=== PATIENT | female | born 1965 ===

== ENCOUNTER 2019-03-11 18:55 | Emergency (ER) | payer OTHER ==
[2019-03-11 19:19] VITALS: TEMP 98.2; O2SAT 100
[2019-03-11 19:25] VITALS: BMI 26.8
--- NOTE | 2019-03-11 19:44 | ED PDOC ---
Arrival/HPI - General Time Seen by Provider: 03/11/19 19:09 Historian: Patient - History of Present Illness Narrative History of Present Illness (Text): 03/11/19 19:09 Pao White is a 53 year old female who presents to the emergency department for throat pain since 2 months. Patient visited PMD for similar complaints and was given augmentin in February with no improvement, had CT from 03/01/19, which showed "Asymmetry of the valleculae with subtle questionable mucosal enhancement of the left vallecula. Recommend further evaluation with direct visual inspection. Slight asymmetry of the piriform sinuses, likely due to swallowing. No other significant abnormality." Patient had direct nasal laryngoscopy last week with ENT in [place] which showed "infection" and patient was started on clarithromycin. Patient reports that her throat pain has still not improved and is worsened when she is talking. Reports that it is not related to swallowing and she has no issues eating or swallowing food. She reports that today she had R sided chest pain with no exacerbating or remitting factors. Time/Duration: > month (2 months) Symptom Course: Unchanged Activities at Onset: Light Context: Home Past Medical History - Provider Review Nursing Documentation Reviewed: Yes - Infectious Disease Hx of Infectious Diseases: None - Tetanus Immunization Tetanus Immunization: Up to Date - Past Medical History Past Medical History: No Previous - Psychiatric Hx Depression: No Hx Emotional Abuse: No Hx Physical Abuse: No Hx Substance Use: No - Past Surgical History Past Surgical History: No Previous - Surgical History Hx Section: Yes - Anesthesia Hx Anesthesia: Yes Hx Anesthesia Reactions: No Hx Malignant Hyperthermia: No - Suicidal Assessment Feels Threatened In Home Enviroment: No Family/Social History - Physician Review Nursing Documentation Reviewed: Yes Family/Social History: Unknown Family HX Smoking Status: Never Smoked Hx Alcohol Use: No Hx Substance Use: No Hx Substance Use Treatment: No Allergies/Home Meds Allergies/Adverse Reactions: Allergies No Known Allergies Allergy (Verified 10/24/16 18:21) Home Medications: Home Meds Medication Instructions Recorded Confirmed Amoxicillin/Clavulanate [Augmentin 1 tab PO BID 03/11/19 03/11/19 875 MG-125 MG Tab] Clarithromycin [Biaxin Filmtab] 500 mg PO Q12H 03/11/19 03/11/19 Ibuprofen [Motrin Tab] 800 mg PO BID 03/11/19 03/11/19 Review of Systems - Review of Systems Constitutional: absent: Fevers, Other (dizziness, lightheadedness) Eyes: absent: Vision Changes ENT: Other (throat pain, worsened when talking x 2 months). absent: Rhinorrhea Respiratory: absent: SOB, Cough Cardiovascular: Chest Pain. absent: Palpitations, Edema, Calf Pain Gastrointestinal: absent: Abdominal Pain, Constipation, Diarrhea, Nausea, Vomiting Skin: absent: Rash Neurological: absent: Dizziness Hemo/Lymphatic: absent: Adenopathy, Easy Bleeding Psychiatric: absent: Anxiety Physical Exam Vital Signs Reviewed: Yes Vital Signs Temp Pulse Resp BP Pulse Ox 03/11/19 19:06 98.2 F 83 18 160/71 H 100 Temperature: Afebrile Blood Pressure: Normal Pulse: Regular Respiratory Rate: Normal Appearance: Positive for: Well-Appearing, Non-Toxic, Comfortable Pain Distress: None Mental Status: Positive for: Alert and Oriented X 3 - Systems Exam Head: Present: Atraumatic, Normocephalic Pupils: Present: PERRL Extroacular Muscles: Present: EOMI Conjunctiva: Present: Normal Mouth: Present: Moist Mucous Membranes Pharnyx: Present: Normal. No: ERYTHEMA, EXUDATE Neck: Present: Normal Range of Motion Respiratory/Chest: Present: Clear to Auscultation, Good Air Exchange. No: Respiratory Distress, Accessory Muscle Use, Wheezes, Rales, Rhonchi Cardiovascular: Present: Regular Rate and Rhythm, Normal S1, S2. No: Murmurs, Rub, Gallop Abdomen: Present: Normal Bowel Sounds. No: Tenderness, Distention, Peritoneal Signs, Rebound, Guarding Back: Present: Normal Inspection Upper Extremity: Present: Normal Inspection. No: Cyanosis, Edema Lower Extremity: Present: Normal Inspection. No: Edema Neurological: Present: GCS=15, CN II-XII Intact, Speech Normal Skin: Present: Warm, Dry, Normal Color. No: Rashes Psychiatric: Present: Alert, Oriented x 3, Normal Insight, Normal Concentration Medical Decision Making ED Course and Treatment: 03/11/19 19:09 Impression: Pao White is a 53 year old female who presents to the emergency department for throat pain since 2 months on clarithromycin, now with 1 day history of R sided chest pain. Plan: -- Labs -- Chest X-Ray -- Toradol -- Reassess and disposition Prior Visits: Notes and results from previous visits were reviewed. Progress Notes: 03/11/19 20:21 EKG shows NSR at 84bpm with normal intervals and no ST changes. Cxray negative as read by me. Trop x 1 negative. Thyroid studies WNL. Heart score:1. Could be side effect of new medication vs unrelated atypical chest pain. Patient phonating normally and tolerating po. Patient instructed on the importance of following up with ENT for further evaluation of chronic throat pain that may be related to vocal cords due to relation to speaking and cardiology due to new R sided chest pain. - RAD Interpretation Radiology Orders: 03/11/19 19:25 CHEST PORTABLE [RAD] Stat - Medication Orders Current Medication Orders: Discontinued Medications Ketorolac Tromethamine (Toradol) 30 mg IVP STAT STA Stop: 03/11/19 19:26 - Scribe Statement The provider has reviewed the documentation as recorded by the Scribe Soto Pierce All medical record entries made by the Scribe were at my direction and personally dictated by me. I have reviewed the chart and agree that the record accurately reflects my personal performance of the history, physical exam, medical decision making, and the department course for this patient. I have also personally directed, reviewed, and agree with the discharge instructions and disposition. Disposition/Present on Arrival - Present on Arrival Any Indicators Present on Arrival: No History of DVT/PE: No History of Uncontrolled Diabetes: No Urinary Catheter: No History Surgical Site Infection Following: None - Disposition Have Diagnosis and Disposition been Completed?: Yes Diagnosis: Throat pain, Chest pain Disposition: HOME/ ROUTINE Disposition Time: 20:29 Patient Plan: Discharge Patient Problems: Current Active Problems Problem Status Onset Throat pain Acute Chest pain Acute Condition: GOOD Discharge Instructions (ExitCare): Sore Throat in Adults, Chest Pain That Is Not Caused by the Heart (DC), Chest Pain (ED) Print Language: SINHAL[place] Additional Instructions: Follow-up with your ENT for further evaluation of throat pain. Follow-up with cardiology for further evaluation. Return to ED if condition worsens. Follow- up with PMD within 2 days. Referrals: Lavon Arellano DO [Staff Provider] - Follow up with primary Ariel Rivero MD [Staff Provider] - Follow up with primary Forms: Mobile Complete (Lithuanian)
[2019-03-11 19:56] LABS: ALB/GLOB RATIO 1.2 (1.1-1.8); ALBUMIN 4.5 g/dL (3.0-4.8); ALT/SGPT 30 U/L (7-56); AST/SGOT 43 U/L (14-36); BLOOD UREA NITROGEN 16 mg/dL (7-21); CALCIUM 9.5 mg/dL (8.4-10.5); GFR NON-AFRICAN AMERICAN > 60
[2019-03-11 20:14] LABS: TROPONIN I < 0.01 ng/mL
[2019-03-11 20:18] LABS: BASO # 0.01 K/mm3 (0.0-2.0); BASO % 0.1 % (0.0-3.0); EOS # 0.2 (0.0-0.7); EOS % 2.8 % (1.5-5.0); HEMOGLOBIN 13.2 g/dL (12.0-16.0); LYMPH % 43.2 % (22.0-35.0); MEAN CELL VOLUME 89.8 fl (80.0-105.0); MEAN CORPUSCULAR HGB CONC 33.4 g/dl (31.0-37.0); MEAN PLATELET VOLUME 10.1 fl (7.0-11.0); MONO # 0.5 (0.1-0.6); MONO % 6.5 % (1.0-6.0); RBC 4.4 10^6/uL (3.5-6.1); RED CELL DISTRIBUTION WIDTH 13.2 % (11.5-14.5); WHITE BLOOD COUNT 6.9 10^3/uL (4.5-11.0)
[2019-03-11 20:19] LABS: FREE T4 1.51 ng/dL (0.78-2.19)
[2019-03-11 20:22] VITALS: BP 144/72; PULSE 70; RESP 16
[2019-03-11 20:22] LABS: INR 1.14; PARTIAL THROMBOPLASTIN TIME 41.6 Seconds (26.9-38.3); PROTHROMBIN TIME 12.6 SECONDS (9.4-12.5)
--- NOTE | 2019-03-12 08:56 | CARD ---
APPROVED REPORT Date of service: 03/11/2019 EKG Measurement Heart [id number] <Conclusion> Normal sinus rhythm Normal ECG
--- NOTE | 2019-03-12 08:56 | RAD ---
Date of service: 03/11/2019 HISTORY: Right-sided chest pain. COMPARISON: 02/18/2014. FINDINGS: LUNGS: No active pulmonary disease. PLEURA: No significant pleural effusion identified, no pneumothorax apparent. CARDIOVASCULAR: No atherosclerotic calcification present Normal. OSSEOUS STRUCTURES: No significant abnormalities. VISUALIZED UPPER ABDOMEN: Normal. OTHER FINDINGS: None. IMPRESSION: No active disease. No significant interval change compared to the prior examination(s). Concordant results with the preliminary interpretation rendered by the emergency department physician procedure.
== END 2019-03-11 20:36 | disposition home or self-care (01) ==
LOC: ED 18:55
DX: R07.0 Pain in throat (principal); R07.89 Other chest pain
CPT/HCPCS: 71045; 80053; 84439; 84443; 84484; 85025; 85610; 85730; 93005; 96374; 99284; J1885